=== PATIENT | male | born 1960 | race Caucasian/White ===

== ENCOUNTER 2023-05-20 09:41 | Emergency (ER) | payer MEDICARE ==
[~2023-05-20] VITALS: Ht 185.4 cm; Wt 102.1 kg
[2023-05-20 11:14] LABS: BASOPHILS ABSOLUTE AUTO 0.05 K/mm3 (0.00-0.23); BASOPHILS PERCENT AUTO 1 % (0-2); EOSINOPHILS ABSOLUTE AUTO 0.49 K/mm3 (0.00-0.68); EOSINOPHILS PERCENT AUTO 7 % (0-6); Hematocrit 30.6 % (37.0-53.0); Hemoglobin 10.1 g/dL (13.5-17.5); IMMATURE GRAN ABSOLUTE AUTO 0.02 K/mm3 (0.00-0.10); IMMATURE GRAN PERCENT AUTO 0 % (0-1); LYMPHOCYTES ABSOLUTE AUTO 1.52 K/mm3 (0.84-5.20); LYMPHOCYTES PERCENT AUTO 22 % (21-46); MONOCYTES PERCENT AUTO 12 % (4-13); Mean Corpuscular HGB 29.3 pg (26.0-34.0); Mean Corpuscular Volume 89 fL (80-100); Mean Platelet Volume 9.4 fL (9.1-12.4); NEUTROPHILS ABSOLUTE AUTO 3.92 K/mm3 (1.96-9.15); NEUTROPHILS PERCENT AUTO 58 % (41-73); Platelet Count 433 K/mm3 (150-400); RDW Coefficient Variation 13.6 % (11.7-14.2); RDW Standard Deviation 43.9 fL (35.1-46.3); Red Blood Cell Count 3.45 M/mm3 (4.30-5.90)
[2023-05-20] MEDS ORDERED: ATOR10 PO (11:20)
[2023-05-20] MEDS ORDERED: TRAM50 PO (11:20)
[2023-05-20 11:27] LABS: Albumin/Globulin Ratio 0.8 (0.8-1.8); Bilirubin, Total 0.4 mg/dL (0.1-1.0); Calcium, Blood 8.3 mg/dL (8.5-10.1); Creatinine, Blood 0.83 mg/dL (0.60-1.20); Globulin, Blood 3.6 g/dL (2.2-4.0); Total Protein, Blood 6.6 g/dL (6.4-8.2)
[2023-05-20] MEDS ORDERED: CLIN150 PO (12:45)
[2023-05-20 13:17] VITALS: BP 124/65
== END 2023-05-20 13:17 | disposition home or self-care (01) ==
LOC: ER 09:41
PROVIDERS: Emergency Medicine
DX: L03.311 Cellulitis of abdominal wall (principal); Z88.0 Allergy status to penicillin; Z79.899 Other long term (current) drug therapy; I10 Essential (primary) hypertension
CPT/HCPCS: 74177; 80053; 85025; 87070; 87077; 87186; 87205; 93005; 93010; 96365-59; 96375; 99284-25; J0690; J2270; J2405; Q9967